=== PATIENT | female | born 2005 | race Caucasian/White ===

== ENCOUNTER 2024-07-29 11:26 | Emergency (ER) | payer BC, SELFPAY ==
[2024-07-29 11:32] VITALS: BP 131/95; PULSE 103; RESP 20; TEMP 36.3; O2SAT 100; BMI 25.1
--- NOTE | 2024-07-29 11:52 | ED_ITS ---
HPI - Abdominal Pain General Time Seen by Provider: 11:52 Date Seen: 07/29/24 Chief Complaint: Abdominal Pain Stated Complaint: Abdominal/flank pain, nausea Time Seen by Provider: 07/29/24 11:52 Source: patient, family and RN notes reviewed Mode of arrival: ambulatory Limitations: no limitations History of Present Illness HPI narrative: Patient is a very pleasant 19-year-old female with a history of PCOS, otherwise healthy who comes to the emergency room for evaluation of abdominal pain. Patient notes that she awoke with middle abdominal discomfort yesterday morning. The pain has now increased in his radiating through entire abdomen and especially cross the upper aspect. It is radiating around both sides to her back. With this she did have 5 episodes of vomiting but no diarrhea. She has had normal bowel movements. She notes no fever or chills. She is not having a difficult time breathing. She has not experienced anything like this in the past. Initially she felt that it was possibly food poisoning but none of her other family members or friends have any symptoms. Patient has been unable to keep any food or fluid down. She does not think she is but has irregular periods. Denies sore throat, any ill contacts. Denies headache. Related Data Allergies Allergy/AdvReac Type Severity Reaction Status Date / Time amoxicillin Allergy Unknown Unknown Verified 07/29/24 11:32 Review of Systems Status of ROS Reports: 10 or more systems reviewed and unremarkable except as noted in History and below Const Denies: fever, chills or fatigue Eyes Denies: change in vision ENMT Denies: throat pain, neck pain or throat swelling Cardio Denies: chest pain or shortness of breath with exertion Resp Denies: shortness of breath or cough GI Reports: abdominal pain, nausea and vomiting; Denies: diarrhea, constipation or blood in stool Denies: painful urination or urinary frequency Musculo Reports: back pain; Denies: neck pain or extremity pain Neuro Denies: headache Endo Denies: excessive urination, excessive thirst or fatigue Allergy/Immuno Denies: throat swelling Exam Narrative: Exam Narrative: Patient is alert and oriented. No acute distress. Somewhat guarded in movement. External ears eyes nose clear. Oral cavity moist mucous membranes heart with regular rate and rhythm and lungs are clear bilaterally. Abdomen is with decreased breath sounds. Feels very firm. No significant tenderness right lower quadrant or right upper quadrant. Does have more pain with palpation over the epigastrium. Moving all extremities. No CVA tenderness with percussion. Const: Vital Signs, click to edit/add: Vital Signs - 24 hr 07/29/24 11:32 07/29/24 12:41 07/29/24 12:45 Temperature 97.4 F L Pulse Rate 99 87 Pulse Rate [Pulse Oximeter] 103 H Respiratory Rate 20 Blood Pressure [Ri ght Upper Arm] 131/95 H Pulse Oximetry 100 97 97 Oxygen Delivery Me thod Room Air 07/29/24 13:00 Temperature Pulse Rate 92 Pulse Rate [Pulse Oximeter] Respiratory Rate 18 Blood Pressure [Ri ght Upper Arm] Pulse Oximetry 100 Oxygen Delivery Me thod Documenting provider has reviewed patient's vital signs: yes Course Course ED Course: Differential diagnosis includes but is not limited to abdominal obstruction, gastritis, cholecystitis/biliary colic, colitis, constipation, pyelonephritis. Will place IV and draw labs to include CBC, comprehensive panel, lipase, lactate, CRP. Urinalysis into test are currently pending. Morphine 2 mg and Zofran 4 mg for discomfort. Reevaluation(s) Reevaluation #1: Patient has had relief with pain medication. A CT of the abdomen showed a 4.7 cm cyst on left ovary with some free fluid in the pelvis. Following up with ultrasound at this time. Will give patient Toradol 15 mg IV for discomfort. Reevaluation #2: Patient noted significant improvement after Toradol. No toxic signs here in vital signs have been stable. Consultations Consultation #1: I had the pleasure of consulting with OBGYN physician Dr. Mckeon. At this time does express that there is a higher risk of torsion with assist this size and should patient have increasing pain she needs to return with plan to remove cyst. Vital Signs Vital signs: Initial Vital Signs Temperature 97.4 F L 07/29/24 11:32 Temperature Source Temporal Artery Scan 07/29/24 11:32 Pulse Rate 103 H 07/29/24 11:32 Respiratory Rate 20 07/29/24 11:32 Blood Pressure 131/95 H 07/29/24 11:32 Blood Pressure Mean 107 H 07/29/24 11:32 Pulse Oximetry 100 07/29/24 11:32 Oxygen Delivery Method Room Air 07/29/24 11:32 Vital Signs Temperature 97.4 F L 07/29/24 11:32 Pulse Rate 103 H 07/29/24 11:32 Respiratory Rate 20 07/29/24 11:32 Blood Pressure 131/95 H 07/29/24 11:32 Pulse Oximetry 100 07/29/24 11:32 Oxygen Delivery Method Room Air 07/29/24 11:32 Temperature 97.4 F L 07/29/24 11:32 Pulse Rate 92 07/29/24 13:00 Respiratory Rate 18 07/29/24 13:00 Blood Pressure 131/95 H 07/29/24 11:32 Pulse Oximetry 100 07/29/24 13:00 Oxygen Delivery Method Room Air 07/29/24 11:32 Medications Administered Medications: Discontinued Medications Generic Name Dose Route Start Last Admin Trade Name Freq PRN Reason Stop Dose Admin Sodium Chloride 500 mls @ 1,000 mls/hr 07/29/24 11:58 07/29/24 13:26 0.9 % Sodium Chloride 500 Ml IV 07/29/24 12:27 Infused .Q30M MIS Infusion Ketorolac Tromethamine 15 mg 07/29/24 14:16 07/29/24 14:24 Ketorolac 15 Mg/Ml Inj IVP 07/29/24 14:17 15 mg ONCE ONE Administration Morphine Sulfate 2 mg 07/29/24 11:57 07/29/24 12:35 Morphine 2 Mg/Ml Inj IVP 07/29/24 11:58 2 mg ONCE ONE Administration Ondansetron HCl 4 mg 07/29/24 11:57 07/29/24 12:34 Ondansetron 2 Mg/Ml Inj IVP 07/29/24 11:58 4 mg ONCE ONE Administration MDM - Abdominal Pain MDM Narrative Medical decision making narrative: 1. Hemorrhagic ovarian cyst-patient noted to have quite a large cyst on the left ovary. She is at increased risk for torsion. She received morphine initially in the ED and then Toradol and has essentially been pain-free. I spoke with our OBGYN organizational development consultant. At this time recommend no sexual activity, no intense activity and follow-up for repeat ultrasound to ensure resolution. If patient however, has increasing pain recommendation would be for cyst removal. Patient voices understanding. Understands well will not be giving her any stronger pain medication as we do not want to mask the symptoms. Asked patient not to use any alcohol at this time. 2. Disposition-home at this time. Patient are will be leaving for [place] tomorrow where they live. Previously had lived in [place]. Recommend seeking medical attention if during their trip patient has worsening symptoms. Lab Data Attestation: I reviewed the patient's lab results. Labs: Lab Results 07/29/24 07/29/24 Range/Units 11:50 12:15 WBC 8.90 (4.50-11.00) K/uL RBC 4.49 (4.00-5.20) m/uL Hgb 14.3 (12.0-16.0) gm/dL Hct 42.1 (33.0-51.0) % MCV 94 (80-100) fL MCH 32 (26-34) pg MCHC 34 (32-36) gm/dL RDW Coeff of Anton 12.9 (11.5-15.5) % Plt Count 279 (140-440) K/uL Neut % (Auto) 78.6 H (42.0-72.0) % Lymph % (Auto) 12.5 L (20-44) % [place] % (Auto) 8.3 (0.0-11.0) % Eos % (Auto) 0.3 (0.0-7.0) % Baso % (Auto) 0.2 (0.0-3.0) % Neut # (Auto) 7.00 (1.7-7.0) K/uL Lymph # (Auto) 1.10 (0.90-2.90) K/uL [place] # (Auto) 0.70 (0.00-0.90) K/UL Eos # (Auto) 0.03 (0.00-0.50) K/uL Baso # (Auto) 0.02 (0.00-0.30) K/uL Abs Immat Gran (auto) 0.01 (0.00-0.30) K/uL Imm/Tot Granulo (auto) 0.1 % Sodium 138 (135-149) mmol/L Potassium 3.5 L (3.6-5.1) mmol/L Chloride 104 (96-114) mmol/L Carbon Dioxide 22 (20-32) mmol/L Anion Gap 12 (7-15) mEq/L BUN 9 (5-24) mg/dL Creatinine 0.5 (0.5-1.5) mg/dL Estimated Creat Clear 140.77 Estimated GFR 137 ml/min Glucose 91 (60-115) mg/dL Lactate 1.0 (0.5-1.9) mmol/L Calcium 9.4 (8.4-10.6) mg/dL Total Bilirubin 0.5 (0.1-1.5) mg/dL AST 24 (12-35) U/L ALT 30 (4-35) U/L Alkaline Phosphatase 82 (40-150) U/L C-Reactive Protein 2.3 H (0.5-1.0) mg/dL Total Protein 8.2 (6.0-8.3) g/dL Albumin 4.9 (3.3-5.0) g/dL Lipase 52 (23-300) U/L Urine Color Yellow (Yellow) Urine Appearance Clear (Clear) Urine pH 6.0 (5.0-8.5) Ur Specific [place] >= 1.030 (1.000-1.030) Urine Protein 1+ A (Negative) Urine Glucose (UA) Negative (Negative) Urine Ketones 2+ A (Negative) Urine Blood Trace-intact A (Negative) Urine Nitrite Negative (Negative) Urine Bilirubin 1+ A (Negative) Urine Urobilinogen 1.0 (0.2-1.0) Ur Leukocyte Esterase Negative (Negative) Urine RBC 0-2 (0-2) Urine WBC 0-2 (0-5) Ur Squamous Epith Cells Many A (None-Few) Urine Bacteria Few A (None) Urine HCG, Qual Negative (Negative) Imaging Data CT scan - abdomen: Attestation: I have reviewed the pertinent imaging results. Radiologist's impression: None. FINDINGS: Lower chest: Unremarkable. Liver: Normal in size and attenuation. No suspicious masses. Gallbladder and bile ducts: No stones or inflammation. No biliary dilatation. Pancreas: Unremarkable. No mass or inflammation. Spleen: Normal in size. No masses. Adrenal glands: Normal in size. No nodules. Kidneys: Normal in size. No suspicious masses, stones, or hydronephrosis. GI tract: Unremarkable. Normal in caliber. No sign of mass or inflammation. Normal appendix. Vasculature: Abdominal aorta is normal in caliber. Lymph nodes: No lymphadenopathy. Peritoneum/Abdominal Wall: Unremarkable. No sign of mass or infiltration. No free air or significant free fluid. Pelvis: Left ovarian 4.7 centimeter cyst pelvis normal appendix. Small amount of free fluid in the pelvis. Bones: Unremarkable for age. IMPRESSION: 1. No acute findings in the abdomen or amount of pelvis. 2.4.7 centimeter left ovarian cyst. Small fluid in pelvis. If the patient has pelvic pain ultrasound could be performed. Pelvic ultrasound: Attestation: I have reviewed the pertinent imaging results. Radiologist's impression: Uterus: 8.3 x 4.5 x 5.5 cm. Endometrium: Upper limits of normal in thickness. The endometrial thickness measures 1.5 cm. Mass: No uterine fibroids identified. Free fluid: Trace pelvic free fluid, likely physiologic. Right ovary: 3.8 x 2.0 x 3.1 cm. No ovarian or adnexal masses. Normal arterial and venous blood flow. Left ovary: 5.9 x 3.9 x 5.1 cm. Heterogeneous lesion measuring 5.0 x 3.4 x 4.8 cm, partially cystic, with areas of echogenic reticulations. No internal vascularity identified. Normal arterial and venous blood flow. IMPRESSION: 1. No evidence of left ovarian torsion. 2. Heterogeneous partially cystic lesion in the left ovary with areas of echogenic reticulations, favored to reflect a hemorrhagic cyst. Recommend follow-up pelvic ultrasound in 6-12 weeks. 3. Endometrial thickness measures upper limits of normal at 1.5 cm. Correlate with patient`s stage of menstrual cycle. Discharge Plan Discharge Clinical Impression: Hemorrhagic cyst of left ovary, Abdominal pain Patient Disposition: Home, Self-Care Condition: Improved Additional Instructions: Avoid sexual activity or any activity where you are moving around a lot. Ibuprofen or Tylenol may be used for any discomfort you are feeling. However, if you suddenly have him crease pain especially on the left please seek medical attention or return to the emergency room for attention as you do have an incre ased risk of ovarian torsion. There was good blood flow today and there is no torsion at this time. Follow Up/Referrals: Provider,Not a Local [Primary Care Provider] - Stand Alone Forms: [facility] Inst[facility]
[2024-07-29 12:00] LABS: Appearance Urine Clear (Clear); Bilirubin Urine 1+ (Negative); Blood Urine Trace-intact (Negative); Color Urine Yellow (Yellow); Glucose Urine Negative (Negative); Ketones Urine 2+ (Negative); Leukocyte Esterase Urine Negative (Negative); Nitrite Urine Negative (Negative); Protein Urine 1+ (Negative); Specific Gravity Urine >= 1.030 (1.000-1.030)
[2024-07-29 12:03] LABS: Ur HCG Qualitative* Negative (Negative)
[2024-07-29 12:27] LABS: Bacteria Urine Few; RBC Urine 0-2 (0-2); Squamous Epithelial Cell Urine Many (None-Few); WBC Urine 0-2 (0-5)
[2024-07-29] MEDS: 0.9 % SODIUM CHLORIDE 500 ML 500 ML 1000 ML IV (12:33)
[2024-07-29] MEDS: ONDANSETRON 2 MG/ML inj 4 MG IVP (12:34)
[2024-07-29] MEDS: MORPHINE 2 MG/ML inj IVP (12:35)
[2024-07-29 12:40] LABS: Basophils Absolute Auto 0.02 K/uL (0.00-0.30); Basophils Percent Auto 0.2 % (0.0-3.0); Eosinophils Absolute Auto 0.03 K/uL (0.00-0.50); Eosinophils Percent Auto 0.3 % (0.0-7.0); Hematocrit 42.1 % (33.0-51.0); Hemoglobin* 14.3 gm/dL (12.0-16.0); Immature Granulocytes Abs Auto 0.01 K/uL (0.00-0.30); Immature Granulocytes Pct Auto 0.1 %; Lymphocytes Percent Auto 12.5 % (20-44); Mean Corpuscular HGB Conc 34 gm/dL (32-36); Mean Corpuscular Hemoglobin 32 pg (26-34); Mean Corpuscular Volume 94 fL (80-100); Monocytes Percent Auto 8.3 % (0.0-11.0); Neutrophils Percent Auto 78.6 % (42.0-72.0); Platelet Count* 279 K/uL (140-440); RDW Coefficient of Variation % 12.9 % (11.5-15.5); Red Blood Count 4.49 m/uL (4.00-5.20)
[2024-07-29 12:41] VITALS: PULSE 99; O2SAT 97
[2024-07-29 12:42] LABS: Chloride* 104 mmol/L (96-114)
[2024-07-29 12:43] LABS: Albumin* 4.9 g/dL (3.3-5.0); Potassium* 3.5 mmol/L (3.6-5.1); Sodium* 138 mmol/L (135-149)
[2024-07-29 12:45] VITALS: PULSE 87; O2SAT 97
[2024-07-29 12:45] LABS: Creatinine* 0.5 mg/dL (0.5-1.5); Est. Creatinine Clearance* 140.77; Estimated Glomerular Filt Rate 137 ml/min; Slide Review Reflex No
[2024-07-29 12:46] LABS: Alanine Aminotransferase* 30 U/L (4-35); Alkaline Phosphatase* 82 U/L (40-150); Anion Gap 12 mEq/L (7-15); Aspartate Amino Transferase* 24 U/L (12-35); Bilirubin Total* 0.5 mg/dL (0.1-1.5); Blood Urea Nitrogen* 9 mg/dL (5-24); Calcium* 9.4 mg/dL (8.4-10.6); Carbon Dioxide* 22 mmol/L (20-32); Glucose* 91 mg/dL (60-115); Lipase* 52 U/L (23-300); Total Protein* 8.2 g/dL (6.0-8.3)
[2024-07-29 12:49] LABS: C Reactive Protein* 2.3 mg/dL (0.5-1.0)
--- NOTE | 2024-07-29 12:54 | CRLHL7_ITS ---
For Patients: As a result of the Century Cures Act, medical imaging exams and procedure reports are released immediately into your electronic medical record. You may view this report before your referring provider. If you have questions, please contact your health care provider. INDICATION: Epigastric pain TECHNIQUE: CT abdomen and pelvis with 67 mL Isovue 370 COMPARISON: None. FINDINGS: Lower chest: Unremarkable. Liver: Normal in size and attenuation. No suspicious masses. Gallbladder and bile ducts: No stones or inflammation. No biliary dilatation. Pancreas: Unremarkable. No mass or inflammation. Spleen: Normal in size. No masses. Adrenal glands: Normal in size. No nodules. Kidneys: Normal in size. No suspicious masses, stones, or hydronephrosis. GI tract: Unremarkable. Normal in caliber. No sign of mass or inflammation. Normal appendix. Vasculature: Abdominal aorta is normal in caliber. Lymph nodes: No lymphadenopathy. Peritoneum/Abdominal Wall: Unremarkable. No sign of mass or infiltration. No free air or significant free fluid. Pelvis: Left ovarian 4.7 centimeter cyst pelvis normal appendix. Small amount of free fluid in the pelvis. Bones: Unremarkable for age. IMPRESSION: 1. No acute findings in the abdomen or amount of pelvis. 2.4.7 centimeter left ovarian cyst. Small fluid in pelvis. If the patient has pelvic pain ultrasound could be performed. Please note that all CT scans at this facility use dose modulation, iterative reconstruction, and/or weight-based dosing when appropriate to reduce radiation dose to as low as reasonably achievable. Dictated by Polina Maldonado MD @ 07/29/2024 2:11:38 PM (Electronically Signed)
[2024-07-29 13:00] VITALS: PULSE 92; RESP 18; O2SAT 100
--- NOTE | 2024-07-29 14:16 | CRLHL7_ITS ---
For Patients: As a result of the Century Cures Act, medical imaging exams and procedure reports are released immediately into your electronic medical record. You may view this report before your referring provider. If you have questions, please contact your health care provider. INDICATION: Left ovarian cyst on CT. TECHNIQUE: Ultrasound pelvis transvaginal only. Real-time sonographic images with spectral and color Doppler imaging of the ovaries were obtained. COMPARISON: CT abdomen/pelvis earlier same day, dated 07/29/2024. FINDINGS: Uterus: 8.3 x 4.5 x 5.5 cm. Endometrium: Upper limits of normal in thickness. The endometrial thickness measures 1.5 cm. Mass: No uterine fibroids identified. Free fluid: Trace pelvic free fluid, likely physiologic. Right ovary: 3.8 x 2.0 x 3.1 cm. No ovarian or adnexal masses. Normal arterial and venous blood flow. Left ovary: 5.9 x 3.9 x 5.1 cm. Heterogeneous lesion measuring 5.0 x 3.4 x 4.8 cm, partially cystic, with areas of echogenic reticulations. No internal vascularity identified. Normal arterial and venous blood flow. IMPRESSION: 1. No evidence of left ovarian torsion. 2. Heterogeneous partially cystic lesion in the left ovary with areas of echogenic reticulations, favored to reflect a hemorrhagic cyst. Recommend follow-up pelvic ultrasound in 6-12 weeks. 3. Endometrial thickness measures upper limits of normal at 1.5 cm. Correlate with patient`s stage of menstrual cycle. Dictated by Gurdeep Zuñiga MD @ 07/29/2024 4:04:15 PM (Electronically Signed)
[2024-07-29] MEDS: KETOROLAC 15 MG/ML inj IVP (14:24)
== END 2024-07-29 17:20 | disposition home or self-care (01) ==
PROVIDERS: Emergency Provider Family Medicine
DX: N83.202 Unspecified ovarian cyst, left side (principal)
CPT/HCPCS: 36415; 74177; 76830; 80053; 81001; 81025; 83605; 83690; 85025; 86140; 87086; 93976; 94761; 96374; 96375; 99284; 99285; J1885; J2270; J2405; J7030; Q9967